=== PATIENT | female | born 1990 | race Caucasian/White ===

== ENCOUNTER 2024-11-10 13:23 | Outpatient (CLI) | payer MEDICAID, SELFPAY ==
--- NOTE | ~2024-11-10 | US_ITS ---
EXAMINATION: US soft tissue LE DATE: 11/10/2024 14:01 INDICATION: Mass at the lateral left ankle TECHNIQUE: Multiple grayscale and Doppler ultrasound images of the region of concern at the lateral l eft ankle were obtained. COMPARISON: None FINDINGS: There is approximately 1.3 x 1.1 x 0.6 cm ill-defined region of increased echogenicity of the subcuta neous fat at the region of concern. The underlying musculature appears unremarkable. No discrete soft tissue masses or abnormal fluid collections identified. IMPRESSION: 1. Small region of increased echogenicity of the subcutaneous fat at the region of concern which is m ost likely inflammatory in etiology. No discrete mass or fluid collection verified. Reviewed, dictated and finalized at location B. IMPRESSION: 1. Small region of increased echogenicity of the subcutaneous fat at the region of concern which is most likely inflammatory in etiology. No discrete mass or fluid collection verified.
--- OUTSIDE RECORDS SUMMARY | 2024-11-10 13:44 | XMS_ITS | Clinical Summary ---
Author Organization [facility] [place] [address] [place] [address] [place] [address] 5[address] [place] [address] Care Team Providers Care Knife Setter Grinder Machine Name Role Phone Gudelia Rader NP Primary Care Provider [phone] Allergies Active Allergy Reactions Criticality Noted Date Comments Other Vomiting Low 02/11/2024 SSRI Medications onabotulinumtox Radha, cosmetic, (Botox Cosmetic) 50 unit recon soln 2 Active desvenlafaxine ER (PRISTIQ) 25 mg tablet extended release 24 hr 24 hr tablet Take 1 tablet (25 mg total) by mouth nightly 90 tablet 1 4 Active ubrogepant (Ubrelvy) 50 mg tablet Take 1 tablet (50 mg total) by mouth once as needed for migraine 10 tablet 1 4 Active Additional Information Patient not taking.Reported on 09/18/2024 ubrogepant (Ubrelvy) 100 mg tablet Take 1 tablet (100 mg total) by mouth as needed for migraine May repeat dose once in 2 hours if no relief. Do not exceed 2 doses in 24 hours. 10 tablet 11 4 Active ARIPiprazole (ABILIFY) 10 mg tablet TAKE 1 TABLET(10 MG) BY MOUTH DAILY 100 tablet 5 Active Active Problems Problem Noted Date Diagnosed Date Pre-operative clearance 02/11/2024 Overview (02/11/2024): EKG normal in office labs, cxr ordered clearance exam in 3.5 weeks when we follow up for medication Assessment & Plan (08/29/2024 9:01 AM CDT): Contingent on lab and cxr review, patient deemed low risk for adverse perioperative reaction r/t anesthesia. This clearance comes from a primary care point of view. No formal psychiatric evaluation has been completed if required for surgery. Patient will need to see Psychiatrist for this--she is in the process of getting set up with Psychiatrist. Patient states her mood is well and she is doing fine on the Abilify and Pristiq. Denies SI/HI. Assessment & Plan (04/16/2024 1:04 PM APPLICATION SUPPORT MANAGER): Patient's EKG, CXR, and labs are acceptable. Patient deemed low risk for adverse perioperative reaction r/t anesthesia. This clearance comes from a primary care point of view. No formal psychiatric evaluation has been completed if required for surgery. Patient will need to see Psychiatrist for this. Patient has been referred to Psychiatry and given resources, also given at our first visit 02/11/24. Patient states her mood is well and doing she is doing fine on the Abilify and Pristiq. Denies SI/HI. Still highly encourage patient to establish with Psychiatry. Migraine 02/11/2024 Assessment & Plan (02/11/2024 1:31 PM CDT): Patient was getting Botox in [place], referral to Neurology placed. Continuing Ubrelvy for now. Psychosis 01/01/2024 Assessment & Plan (08/29/2024 9:02 AM CDT): Patient states her mood is well and is doing fine on the Abilify and Pristiq. Denies SI/HI. Pt in the process of getting set up with Psychiatrist through [facility] Assessment & Plan (04/16/2024 1:06 PM APPLICATION SUPPORT MANAGER): Patient states her mood is well and doing she is doing fine on the Abilify and Pristiq. Denies SI/HI. Still highly encourage patient to establish with Psychiatry. Assessment & Plan (02/11/2024 1:30 PM CDT): Continuing Abilify but not at goal, pt used to be on Pristiq also. Will re-start for patient. Referral to Psychiatry placed. Assessment & Plan (01/01/2024 12:18 PM CDT): Patient reports history of psychosis and possible early stages of schizophrenia. Currently takes Abilify 10mg daily. Will refill at this time. If any SI or HI seek medical care immediately. Patient verbalized understanding and agreed to plan of care at this time. Encounters Date Type Department Care Team Description 09/18/2024 8:00 AM CDT Office Visit [facility] Primary Care at [address] [phone] Gudelia Rader NP Mass of left lower leg (Primary Dx) 09/16/2024 11:00 AM CDT Procedure visit [facility] Neurology [address] [place] [phone] Ryan Thomas MD 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 status migrainosus 09/03/2024 Telephone [facility] Primary Care at [address] [phone] Gudelia Rader NP Medical Question/Miscellaneous 09/01/2024 Results Follow-Up [facility] Primary Care at [address] [phone] Gudelia Rader NP Comprehensive metabolic panel, CBC with auto differential, Differential, auto, eGFR 09/01/2024 Results Follow-Up [facility] Primary Care at [address] [phone] Gudelia Rader NP XR Chest PA Lateral 2 Views 08/29/2024 9:15 AM CDT Ancillary Procedure [facility] Imaging at [address] [phone] Pre-operative clearance 08/29/2024 9:00 AM CDT Lab [facility] Outpatient Lab at [address] [phone] Pre-operative clearance (Primary Dx) 08/29/2024 8:55 AM CDT - 08/29/2024 11:59 PM CDT Hospital Encounter [facility] [address] [place] [address] Pre-operative clearance Discharge Disposition: Discharge to home or self care 08/29/2024 8:30 AM CDT Office Visit [facility] Primary Care at [address] [phone] Gudelia Rader NP Pre-operative clearance (Primary Dx); Psychosis, unspecified psychosis type (HCC) 08/14/2024 Telephone [facility] Neurology [address] [phone] Ryan Thomas MD Appeal ([place]) 08/13/2024 Telephone [facility] Primary Care at [address] [phone] Gudelia Rader NP Prior Auth (Desvenlafaxine) from Last 3 Months Surgical History Surgery Date Site/Laterality Comments NASAL SEPTUM SURGERY TONSILLECTOMY Medical History Medical History Date Comments Anxiety Migraines Menstrual problem 6 months ago Family History Medical History Relation Name Comments Breast cancer Mother Lyudmila Mental illness Mother Lyudmila Breast cancer Paternal Grandmother Bel Depression Paternal Grandmother Bel Stroke Paternal Grandmother Bel Relation Name Status Comments Mother Lyudmila Paternal Grandmother Bel Social History Tobacco Use Types Packs/Day Years Used Date Smoking Tobacco: Every Day Cigarettes 0.3 3 Tobacco Cessation:Ready to Q uit: Not Asked; Counseling Given: Not Answered Comments:Former smoker , quit for 7 years and want to quit again PHQ-2 Answer Date Recorded PHQ-2 Total Score (If total score is 3 or more points, staff should administer the PHQ-9) 0 09/18/2024 PHQ-9 Answer Date Recorded PHQ-9 Total Score 14 02/11/2024 Comments Unknown Sex and Gender Information Value Date Recorded Sex Assigned at Not on file Legal Sex Female 10:41 AM CDT Gender Identity Female 02/18/2024 8:55 AM CDT Sexual Orientation Straight 02/18/2024 8: 55 AM CDT Obstetrics History Last Filed Vital Signs Vital Sign Reading Time Taken Comments Blood Pressure 94/62 09/18/2024 8:08 AM CDT Pulse 102 09/18/2024 8:08 AM CDT Temperature 37.1 C (98.7 F) 09/18/2024 8:08 AM CDT Respiratory Rate - - Oxygen Saturation 96% 09/18/2024 8:08 AM CDT Inhaled Oxygen Concentration - - Weight 62.6 kg (138 lb) 09/18/2024 8:08 AM CDT Height 162.6 cm (5' 4) 09/18/2024 8:08 AM CDT Body Mass Index 23.69 09/18/2024 8:08 AM CDT Plan of Treatment Health Maintenance Due Date Last Done Comments Cervical Cancer Screening 1992 DTaP/Tdap/Td Vaccine (1 - Tdap) 11/22/2003 Varicella Vaccines (1 of 2 - 13+ 2-dose series) 2005 Hepatitis B Screening 2010 Regular Well Visit/Exam 18-64 2010 Pneumococcal vaccine <65 (1 of 2 - PCV) 11/22/2011 Influenza Vaccine (Season Ended) 2025 Depression Screening 09/18/2025 09/18/2024, 08/29/2024, 04/16/2024, Additional history exists Hepatitis C Screening Completed 02/11/2024 HPV Vaccines Aged Out No longer eligi ble based on patient's age to complete this topic Procedures Procedure Name Priority Date/Time Associated Diagnosis Comments WA CHEMODERVATE FACIAL/TRIGEM/CERV MUSC MIGRAINE Routine 09/16/2024 11:00 AM CDT 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 status migrainosus EGFR Routine 08/29/2024 9:54 PM CDT Pre-operative clearance COMPREHENSIVE METABOLIC PANEL Routine 08/29/2024 9:54 PM CDT Pre-operative clearance DIFFERENTIAL AUTO Routine 08/29/2024 9:5 1 PM CDT Pre-operative clearance CBC WITH AUTO DIFFERENTIAL Routine 08/29/2024 9:51 PM CDT Pre-operative clearance XR CHEST PA LATERAL 2 VIEWS Schedule Routine, Read Routine (OP Routine) 08/29/2024 9:08 AM CDT Pre-operative clearance ECG 12-LEAD Routine 08/29/2024 9:02 AM CDT Pre-operative clearance HEPATITIS C ANTIBODY Routine 02/11/2024 1:20 PM CDT Encounter for hepatitis C screening test for low risk patient from Last 3 Months or Most Recently Relevant to Health Maintenance Results * WA CHEMODERVATE FACIAL/TRIGEM/CERV MUSC MIGRAINE (09/16/2024 11:00 AM CDT) Narrative Tania Snowden - 09/16/2024 11:00 AM CDT Tania Snowden 09/19/2024 12:21 PM Botox Injection Performed by: Ryan Thomas MD Authorized by: Ryan Thomas MD [place] Protocol: Consent Given by: Patient Timeout: prior to procedure the correct patient, procedure, and site was verified Procedure Details - Botox Injection: Procedure Details: See Botox flow sheet for details on injection sites and amounts. This can be found in Media and labeled BLVLE [email or web address].PROCEDURE NOTES. Procedure Note Tania Snowden - 09/16/2024 11:00 AM CDT Botox Injection Performed by: Ryan Thomas MD Authorized by: Ryan Thomas MD [place] Protocol: Consent Given by: Patient Timeout: prior to procedure the correct patient, procedure, and site wasverified Procedure Details - Botox Injection: Procedure Details: See Botox flow sheet for details on injection sitesand amounts. This can be found in [employer] and labeled [email or web address].PROCEDURE NOTES. us Ryan Thomas MD IN CLINIC/BEDSIDE ORDERABLES F inal Result * eGFR (08/29/2024 9:54 PM CDT) eGFR >90 >=60 mL/min/1. 73 m2 Comment: Interpretive Data Reference Interval Normal >/= 90 mL/min/1.73m2 Mildly decreased* 60 - 89 mL/min/1.73m2 Mildly to moderately decreased 45 - 59 mL/min/1.73m2 Moderately to severely decreased 30 - 44 mL/min/1.73m2 Severely decreased 15 - 29 mL/min/1.73m2 Kidney Failure < 15 mL/min/1.73m2 *Relative to young adult level Estimated glomerular filtration rate is determined by the 2020 CKD-EPI equation recommended by the National Kidney Foundation (A Unifying Approach to GFR Estimation: Recommendations of the NKF-ASK Task Force on Reassessing the Inclusion of Race in Diagnosing Kidney Disease, JASN 2020). The CKD-EPI equation should not be used for patients with unstable renal function and has not been validated in children and those over 70. Current interpretive data was last reviewed 2021. Blood 08/29/2024 9:54 PM CDT 08/29/2024 9:54 PM CDT us Gudelia Rader NP LAB BLOOD ORDERABLES Final Resul t [facility] [address] Department [place] [address] * (ABNORMAL) Comprehensive metabolic panel (08/29/2024 9:54 PM CDT) Sodium 135 135 - 145 mmol/L Potassium, pl 4.3 3.3 - 4.9 mmol/L [facility] Chloride 102 97 - 110 mmol/L [facility] CO2 23 22 - 32 mmol/L [facility] Anion gap 10 2 - 15 mmol/L [facility] BUN 13 6 - 25 mg/dL [facility] Creatinine 0.70 0.60 - 1.10 mg/dL [facility] Glucose 63(L) 70 - 199 mg/dL [facility] Comment: Interpretive Data Fasting glucose >/= 126 mg/dl is diagnostic for diabetes. Fasting is defined as no caloric intake for at least 8 hours. Fasting glucose between 100 mg/dl to 125 mg/dl is diagnostic of prediabetes. In a patient with classic symptoms of hyperglycemia or hyperglycemic crisis, a random glucose >/= 200 mg/dl is diagnostic for diabetes. In the absence of unequivocal hyperglycemia, results should be confirmed by repeat testing. The classification and Diagnosis of Diabetes Diabetes Care 202; 46: S19-S40. Current interpretive data was last revised 2022. Calcium 9.5 8.5 - 10.3 mg/dL [facility] Bilirubin, total 0.3 0.1 - 1.2 mg/dL [facility] Protein, pl 6.7 6.5 - 8.5 g/dL [facility] Albumin 4.2 3.5 - 5.0 g/dL [facility] Alk phos 62 40 - 130 Units/L [facility] ALT 8 7 - 45 Units/L [facility] AST 27 10 - 45 Units/L [facility] Blood 08/29/2024 9:54 PM CDT 08/29/2024 9:54 PM CDT us Gudelia Rader NP LAB BLOOD ORDERABLES Final Resul t [facility] [address] Department [place] [address] * Differential, auto (08/29/2024 9:51 PM CDT) Neutrophil abs 4.42 1.50 - 6.50 K/cumm Imm gran abs 0.02 0.00 - 0.10 K/cumm [facility] Lymphocyte abs 1.62 0.80 - 3.30 K/cumm [facility] Monocyte abs 0.55 0.20 - 0.80 K/cumm [facility] Eosinophil abs 0.49 0.00 - 0.50 K/cumm [facility] Basophil abs 0.07 0.00 - 0.10 K/cumm [facility] Neutrophil pct 61.6 % [facility] Comment: Interpretive Data Percent cell count reference ranges are not reported, since discordance with absolute values may lead to misinterpretation of CBC data. Current Interpretive Data was last revised on 2017. Imm gran pct 0.3 % [facility] Comment: Interpretive Data Percent cell count reference ranges are not reported, since discordance with absolute values may lead to misinterpretation of CBC data. Current Interpretive Data was last revised on 2017. Lymphocyte pct 22.6 % [facility] Comment: Interpretive Data Percent cell count reference ranges are not reported, since discordance with absolute values may lead to misinterpretation of CBC data. Current Interpretive Data was last revised on 2017. Monocyte pct 7.7 % [facility] Comment: Interpretive Data Percent cell count reference ranges are not reported, since discordance with absolute values may lead to misinterpretation of CBC data. Current Interpretive Data was last revised on 2017. Eosinophil pct 6.8 % [facility] Comment: Interpretive Data Percent cell count reference ranges are not reported, since discordance with absolute values may lead to misinterpretation of CBC data. Current Interpretive Data was last revised on 2017. Basophil pct 1.0 % [facility] Comment: Interpretive Data Percent cell count reference ranges are not reported, since discordance with absolute values may lead to misinterpretation of CBC data. Current Interpretive Data was last revised on 2017. Blood 08/29/2024 9:51 PM CDT 08/29/2024 9:51 PM CDT us Gudelia Rader NP LAB BLOOD ORDERABLES Final Resul t [facility] [address] [address] Department [place] [address] * (ABNORMAL) CBC with auto differential (08/29/2024 9:51 PM CDT) WBC 7.17 3.80 - 9.90 K/cumm Hgb 14.3 11.9 - 15.5 g/dL [facility] Hct 45.1 35.6 - 45.5 % [facility] Plt 243 150 - 400 K/cumm [facility] MPV 9.8 9.1 - 12.3 fL [facility] RBC 4.71 3.90 - 5.20 M/cumm [facility] MCV 95.8 81.3 - 96.4 fL [facility] MCH 30.4 27.1 - 33.3 pg [facility] MCHC 31.7(L) 32.3 - 35.7 g/dL [facility] RDW CV 12.7 11.1 - 14.9 % [facility] RDW SD 44.9 35.7 - 48.1 fL [facility] NRBC abs 0.00 0.00 - 0.01 K/cumm [facility] Blood 08/29/2024 9:51 PM CDT 08/29/2024 9:51 PM CDT Gudelia Rader NP LAB BLOOD ORDERABLES Final Resul t [facility] [address] Department [place] [address] * XR Chest PA Lateral 2 Views (08/29/2024 9:08 AM CDT) Anatomical Region Laterality Modality Body, Chest N/A Digital Radiogra phy 08/30/2024 1:41 AM CDT Narrative 08/30/2024 1:42 AM CDT EXAM DESCRIPTION: XR CHEST PA LATERAL 2 VIEWS REASON FOR STUDY: Pre-op exam Pre op. No chest complaints. No surgery to heart, lungs, or chest. Smoker for about 10 years, 05/17 PPD TECHNIQUE: 2 radiographic view(s) of the chest. COMPARISON: 02/11/2024 FINDINGS: LUNGS: No focal opacity, pleural effusion, or pneumothorax. HEART/MEDIASTINUM: Cardiac silhouette normal in size. Mediastinal and hilar contours appear normal. LINES/TUBES: None. BONES: No acute osseous abnormality. IMPRESSION: No acute cardiopulmonary abnormality. THIS IS AN ELECTRONICALLY VERIFIED FINAL REPORT 08/30/2024 1:42 AM - Electronically signed by London Funez M.D. KT T: Report ID: [id number] Reading Location: [id number] Procedure Note London Funez MD - 08/30/2024 EXAM DESCRIPTION: XR CHEST PA LATERAL 2 VIEWS REASON FOR STUDY: Pre-op exam Pre op. No chest complaints. No surgery to heart, lungs, or chest. Smokerfor about 10 years, 1/ PPD TECHNIQUE: 2 radiographic view(s) of the chest. COMPARISON: 02/11/2024 FINDINGS: LUNGS: No focal opacity, pleural effusion, or pneumothorax. HEART/MEDIASTINUM: Cardiac silhouette normal in size. Mediastinal andhilar contours appear normal. LINES/TUBES: None. BONES: No acute osseous abnormality. IMPRESSION: No acute cardiopulmonary abnormality. THIS IS AN ELECTRONICALLY VERIFIED FINAL REPORT 08/30/2024 1:42 AM - Electronically signed by London Funez M.D. KT T: Report ID: [id number] Reading Location: [place] [address] Gudelia Rader NP IMG XR PROCEDURES Final Result * ECG 12-LEAD (08/29/2024 9:02 AM CDT) Narrative Gudelia Rader NP - 08/29/2024 9:02 AM CDT Gudelia Rader NP 08/29/2024 9:03 AM ECG 12 lead Date/Time: 08/29/2024 9:02 AM Performed by: Gudelia Rader NP Authorized by: Gudelia Rader NP Comparison: compared with previous ECG Rhythm: sinus rhythm Rate: normal QRS axis: normal Conduction: conduction normal ST Segments: ST segments normal T Waves: T waves normal Gudelia Rader NP ECG ORDERABLES Edited Result - Final * Hepatitis C antibody Blood (02/11/2024 1:20 PM CDT) Hep C Ab Nonreactive Nonreactive Comment: Interpretive Data Nonreactive: Antibodies to HCV not detected. Does NOT exclude the possibility of recent exposure to HCV. Equivocal: Equivocal for HCV antibodies. Supplemental molecular testing will be automatically performed to determine infection status in accordance with current CDC screening recommendations. Reactive: Positive for HCV antibodies. This may represent current or past HCV infection. Supplemental molecular testing will be automatically performed to determine current infection status in accordance with current CDC screening recommendations. Interpretive data was last revised on 2019. Blood 02/11/2024 1:20 PM CDT 02/11/2024 8:40 PM CDT Gudelia Rader NP LAB MICROBIOLOGY - GENERAL ORDER [place] Final Result [facility] [id number] Department [place] [address] from Last 3 Months or Most Recently Relevant to Health Maintenance Insurance [facility] Care Teams Knife Setter Grinder Machine Relationship Specialty Start Date End Date Gudelia Rader NP [address] [place], [place] [id number] PCP - General Family Medicine 02/11/24
--- OUTSIDE RECORDS SUMMARY | 2024-11-10 13:44 | XMS_ITS | Referral Summary ---
Author Organization [address] Address [address] [place] [address] 5[address] [place] [address] Care Team Providers Care Aids Nurse Name Role Phone Gudelia Rader NP Primary Care Provider [phone] Encounters Date Type Department Care Team Description 09/18/2024 8:00 AM CDT Office Visit [facility] Primary Care at [address] [phone] Gudelia Rader NP Mass of left lower leg (Primary Dx) 09/16/2024 11:00 AM CDT Procedure visit [facility] Neurology [address] [place] [phone] Ryan Thomas MD 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 status migrainosus 09/03/2024 Telephone [facility] Primary Care at [address] [phone] Gudelia Rader NP Medical Question/Miscellaneous 09/01/2024 Results Follow-Up [facility] Primary Care at [address] [phone] Gudelia Rader NP Comprehensive metabolic panel, CBC with auto differential, Differential, auto, eGFR 09/01/2024 Results Follow-Up [facility] Primary Care at [address] [phone] Gudelia Rader NP XR Chest PA Lateral 2 Views 08/29/2024 8:55 AM CDT - 08/29/2024 11:59 PM CDT Hospital Encounter [address] [address] Pre-operative clearance Discharge Disposition: Discharge to home or self care 08/29/2024 9:15 AM CDT Ancillary Procedure [facility] Imaging at [address] [phone] Pre-operative clearance 08/29/2024 9:00 AM CDT Lab [facility] Outpatient Lab at [address] [phone] Pre-operative clearance (Primary Dx) 08/29/2024 8:30 AM CDT Office Visit [facility] Primary Care at [address] [phone] Gudelia Rader NP Pre-operative clearance (Primary Dx); Psychosis, unspecified psychosis type (HCC) 08/14/2024 Telephone [facility] Neurology [address] [place] [phone] Ryan Thomas MD Appeal ([place]) 08/13/2024 Telephone [facility] Primary Care at [address] [phone] Gudelia Rader NP Prior Auth (Desvenlafaxine) from Last 3 Months Allergies Active Allergy Reactions Criticality Noted Date [...] SI/HI. 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 [...] PM CDT): Patient was getting Botox in [place], referral to Neurology placed. Continuing Ubrelvy for now. Psychosis 01/01/2024 Assessment & Plan (08/29/2024 9:02 AM CDT): Patient states her mood is well and is doing fine on the Abilify and Pristiq. Denies SI/HI. 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 Social History Tobacco Use Types Packs/Day Years [...] Orientation Straight 02/18/2024 8: 55 AM CDT Last Filed Vital Signs Vital Sign Reading [...] 09/18/2024 8:08 AM CDT Plan of Treatment Not on file Procedures Procedure Name Priority Date/Time Associated Diagnosis Comments CT CHEMODERVATE FACIAL/TRIGEM/CERV MUSC MIGRAINE Routine 09/16/2024 11:00 [...] Recently Relevant to Health Maintenance Results * CT CHEMODERVATE FACIAL/TRIGEM/CERV MUSC MIGRAINE (09/16/2024 11:00 AM CDT) Narrative Tania Snowden - 09/16/2024 11:00 AM CDT Tania Snowden 09/19/2024 12:21 PM Botox Injection Performed by: Ryan Thomas MD Authorized by: Ryan Thomas MD [place] Protocol: Consent Given by: Patient Timeout: prior [...] Thomas MD Authorized by: Ryan Thomas MD [place] Protocol: Consent Given by: Patient Timeout: prior to procedure the correct patient, procedure, and site wasverified Procedure Details - Botox Injection: Procedure Details: See Botox flow sheet for details on injection sitesand amounts. This can be found in Media and labeled [email or web address] NOTES. us Ryan Thomas [...] NP LAB BLOOD ORDERABLES Final Resul t [facility] [id number] [address] Department [place] [address] * (ABNORMAL) Comprehensive metabolic panel (08/29/2024 9:54 PM CDT) Sodium 135 135 - 145 mmol/L Potassium, pl 4.3 3.3 - 4.9 mmol/L [facility] Chloride 102 97 - 110 mmol/L [facility] CO2 23 22 - 32 mmol/L [facility] Anion gap 10 2 - 15 mmol/L [facility] BUN 13 6 - 25 mg/dL [facility] Creatinine 0.70 0.60 - 1.10 mg/dL [facility] Glucose 63(L) 70 - 199 mg/dL [facility] Comment: Interpretive Data Fasting glucose >/= 126 [...] classification and Diagnosis of Diabetes Diabetes Care 2021; 46: S19-S40. Current interpretive data was last [...] BLOOD ORDERABLES Final Resul t [facility] [id number] [address] Department [place] [address] * Differential, auto (08/29/2024 9:51 PM CDT) Neutrophil abs 4.42 1.50 - 6.50 K/cumm Imm gran abs 0.02 0.00 - 0.10 K/cumm [facility] Lymphocyte abs 1.62 0.80 - 3.30 K/cumm [facility] Monocyte abs 0.55 0.20 - 0.80 K/cumm [facility] Eosinophil abs 0.49 0.00 - 0.50 K/cumm [facility] Basophil abs 0.07 0.00 - 0.10 K/cumm [facility] Neutrophil pct 61.6 % [facility] Comment: Interpretive Data Percent cell count reference ranges are not reported, since discordance with absolute values may lead to misinterpretation of CBC data. Current Interpretive Data was last revised on 2017. Imm gran pct 0.3 % [facility] Comment: Interpretive Data Percent cell count reference ranges are not reported, since discordance with absolute values may lead to misinterpretation of CBC data. Current Interpretive Data was last revised on 2017. Lymphocyte pct 22.6 % [facility] Comment: Interpretive Data Percent cell count reference ranges are not reported, since discordance with absolute values may lead to misinterpretation of CBC data. Current Interpretive Data was last revised on 2017. Monocyte pct 7.7 % [facility] Comment: Interpretive Data Percent cell count reference ranges are not reported, since discordance with absolute values may lead to misinterpretation of CBC data. Current Interpretive Data was last revised on 2017. Eosinophil pct 6.8 % [facility] Comment: Interpretive Data Percent cell count reference ranges are not reported, since discordance with absolute values may lead to misinterpretation of CBC data. Current Interpretive Data was last revised on 2017. Basophil pct 1.0 % [facility] Comment: Interpretive Data Percent cell count reference ranges are not reported, since discordance with absolute values may lead to misinterpretation of CBC data. Current Interpretive Data was last revised on 2017. Blood 08/29/2024 9:51 PM CDT 08/29/2024 9:51 PM CDT us Gudelia Rader NP LAB BLOOD ORDERABLES Final Resul t [facility] [id number] [address] Department [place] [address] * (ABNORMAL) CBC with auto differential (08/29/2024 9:51 PM CDT) WBC 7.17 3.80 - 9.90 K/cumm Hgb 14.3 11.9 - 15.5 g/dL [facility] Hct 45.1 35.6 - 45.5 % [facility] Plt 243 150 - 400 K/cumm [facility] MPV 9.8 9.1 - 12.3 fL [facility] RBC 4.71 3.90 - 5.20 M/cumm [facility] MCV 95.8 81.3 - 96.4 fL [facility] MCH 30.4 27.1 - 33.3 pg [facility] MCHC 31.7(L) 32.3 - 35.7 g/dL [facility] RDW CV 12.7 11.1 - 14.9 % [facility] RDW SD 44.9 35.7 - 48.1 fL [facility] NRBC abs 0.00 0.00 - 0.01 K/cumm [facility] Blood 08/29/2024 9:51 PM CDT 08/29/2024 9:51 PM CDT Gudelia Rader NP LAB BLOOD ORDERABLES Final Resul t [facility] [address] [address] [place] [address] * XR Chest PA Lateral 2 Views (08/29/2024 9:08 AM CDT) Anatomical Region Laterality Modality Body, Chest N/A Digital Radiogra phy 08/30/2024 1:41 AM CDT Narrative 08/30/2024 1:42 AM CDT EXAM DESCRIPTION: XR CHEST PA LATERAL 2 VIEWS REASON FOR STUDY: Pre-op exam Pre op. No chest complaints. No surgery to heart, lungs, or chest. Smoker for about 10 years, 1/4 PPD TECHNIQUE: 2 radiographic view(s) of the [...] London Funez M.D. KT T: Report ID: [id number] Reading Location: [place] [address] Procedure Note London Funez MD - 08/30/2024 EXAM DESCRIPTION: XR CHEST PA LATERAL 2 VIEWS REASON FOR STUDY: Pre-op exam Pre op. No chest complaints. No surgery to heart, lungs, or chest. Smokerfor about 10 years, 05/17 PPD TECHNIQUE: 2 [...] London Funez M.D. KT T: Report ID: [id number] Reading Location: [place] [address] Gudelia Rader NP IMG XR PROCEDURES Final [...] MICROBIOLOGY - GENERAL ORDER MYRON Final Result [facility] [address] [address] Department [place] [address] from Last 3 Months or Most Recently Relevant to Health Maintenance Insurance [facility] Care Teams Aids Nurse Relationship Specialty Start Date End Date Gudelia Rader NP [address] [facility] [address] [place] [address] PCP - General Family Medicine 02/11/24
== END 2024-11-10 13:24 | disposition home or self-care (01) ==
PROVIDERS: PCP Nurse Practitioner Family; Visit Provider Nurse Practitioner Family
DX: R93.6 Abnormal findings on diagnostic imaging of limbs (principal)
CPT/HCPCS: 76882

== ENCOUNTER 2025-02-01 17:13 | Emergency (ER) | payer OTHER, SELFPAY ==
[2025-02-01 17:25] VITALS: BP 153/98; PULSE 94; RESP 16; TEMP 36.7; O2SAT 98
--- NOTE | 2025-02-01 19:05 | ED.FEMALEGU ---
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 She reports she has not had her menstrual period approximately 50 days, although patient is unsure of the exact date. Patient denies any vaginal bleeding, abnormal vaginal discharge, or urinary symptoms. She does reports she felt as though a ?bug was crawling out of her vagina. Patient reports she has concerns for STDs although she is not worried about . She reports she has 2 children. Patient denies abdominal pain but reports she has a ?uncomfortable belly. She reports she has a history of back pain and STDs. Related Data Allergies Allergy/AdvReac Type Severity Reaction Status Date / Time trazodone AdvReac Intermediate Vomiting Verified 02/01/25 17:24 SSRI AdvReac Intermediate Vomiting Uncoded 02/01/25 17:24 Review of Systems Review of Systems: All systems reviewed & are unremarkable except as noted in HPI and below Exam Narrative: GENERAL: Well appearing, well-nourished, non-toxic, in no acute distress. HEAD: Normocephalic, atraumatic. NECK: Supple. No adenopathy, no masses. RESPIRATORY: Airway patent, respirations nonlabored. Clear to auscultation bilaterally, no rales, rhonchi, wheezing. CARDIOVASCULAR: Regular rate and rhythm without murmurs, rubs, or gallops. Peripheral pulses 2+ and equal bilaterally. ABDOMINAL: Soft, mildly tender left lower quadrant, nondistended, no hepatosplenomegaly. Normoactive BS. MUSCULOSKELETAL: Moves all extremities. Strength/ROM intact without gross deformities. SKIN: Warm, dry, normal color. No rashes. NEURO: A&O X3. Speech clear. Cranial nerves II-XII intact. No ataxic movements. PSYCHIATRIC: Appropriate mood and affect. Normal interaction. Course Vital Signs Vital signs: Vital Signs Temperature 36.7 C 02/01/25 17:25 Pulse Rate 94 02/01/25 17:25 Respiratory Rate 16 02/01/25 17:25 Blood Pressure 153/98 H 02/01/25 17:25 Pulse Oximetry 98 02/01/25 17:25 Oxygen Delivery Room Air 02/01/25 17:25 Temperature 36.7 C 02/01/25 17:25 Pulse Rate 88 02/01/25 19:37 Respiratory Rate 12 02/01/25 19:37 Blood Pressure 134/95 H 02/01/25 19:37 Pulse Oximetry 100 02/01/25 19:37 Oxygen Delivery Room Air 02/01/25 19:37 MDM - Female Genitourinary MDM Narrative Medical decision making narrative: Patient is a 34-year-old female who presents to the ER with concerns for an STD. She reports she has not had her menstrual period approximately 50 days, although patient is unsure of the exact date. Patient denies any vaginal bleeding, abnormal vaginal discharge, or urinary symptoms. She does reports she felt as though a ?bug was crawling out of her vagina. Patient reports she has concerns for STDs although she is not worried about . She reports she has 2 children. Patient denies abdominal pain but reports she has a ?uncomfortable belly. She reports she has a history of back pain and STDs. Labs ordered: Trichomonas, GC chlamydia, urine , UA Patient has chosen to refuse further care. Risks of an incomplete evaluation and treatment were discussed with the patient, including potential for or permanent disability. Patient seems to understand these risks, but still desires to refuse further care. Patient recommended to follow up with PCP in the next possible interval. Specifically, patient was told they can return to the ED at any time to resume care. Differential Diagnosis Differential diagnosis: Likely urinary tract infection, trichomoniasis and other (Chlamydia, gonorrhea, ) Lab Data Attestation: I reviewed the patient's lab results. Labs: Lab Results 02/01/25 02/01/25 Range/Units 19:20 19:23 Urine Color Yellow (Yellow) Urine Appearance Clear (Clear) Urine pH 5.5 (5.0-9.0) Ur Specific Maurice 1.020 (1.001-1.035) Urine Protein Negative (Negative) mg/dL Urine Glucose (UA) Negative (Negative) mg/dL Urine Ketones Trace H (Negative) mg/dL Ur Blood (Man) Negative (Negative) Urine Nitrate Negative (Negative) Urine Bilirubin Negative (Negative) Urine Urobilinogen 0.2 (<2.0) mg/dL Leukocyte Esterase Rfl Negative (Negative) CHANG/UL POC Urine HCG, Qual Negative (Negative) Urine Test Negative C. trachomatis (PCR) Pending N. gonorrhoeae (PCR) Pending T. vaginalis (PCR) Pending Discharge Plan Discharge Clinical Impression: Concern about STD in female without diagnosis Patient Disposition: Left Against Medical Advice Condition: Stable Patient Language: Turkish Follow-up/Referrals: Prasanth,Gudelia Grossman, DIRECTOR MEDICAL ECONOMICS [Primary Care Provider, Unknown]
[2025-02-01 19:25] LABS: BEDSIDEPREGUCG Negative (Negative)
[2025-02-01 19:29] LABS: Add Urine Microscopic? NO; Appearance Urine Clear (Clear); Glucose Urine UA Negative (Negative); Leukocyte Esterase Ur Negative LEU/UL (Negative); Nitrate Urine Negative (Negative); Specific Grav Ur 1.020 (1.001-1.035)
[2025-02-01 19:35] LABS: Pregnancy On Board Control Positive
[2025-02-01 19:37] VITALS: BP 134/95; PULSE 88; RESP 12; O2SAT 100
[2025-02-01 20:23] VITALS: BP 134/95; PULSE 88; RESP 12; O2SAT 100
[2025-02-01 20:35] LABS: Trichomonas Vag PCR NOT DETECTED (NOT DETECTE)
== END 2025-02-01 20:17 | disposition left against medical advice (07) ==
PROVIDERS: Emergency Provider Registered Nurse; PCP Nurse Practitioner Family
DX: R10.9 Unspecified abdominal pain (principal); Z20.2 Contact with and (suspected) exposure to infections with a predominantly sexual mode of transmission
CPT/HCPCS: 81003; 81025; 87491; 87591; 87661; 99284

== ENCOUNTER 2025-02-28 01:50 | Emergency (ER) | payer OTHER, SELFPAY ==
[2025-02-28 01:54] VITALS: BP 138/95; PULSE 85; RESP 20; TEMP 36.7; O2SAT 100
== END 2025-02-28 06:50 | disposition left against medical advice (07) ==
PROVIDERS: PCP Nurse Practitioner Family
DX: R51.9 Headache, unspecified (principal)
CPT/HCPCS: 99199